=== PATIENT | male | born 1950 | race Caucasian/White ===

== ENCOUNTER → 2017-01-07 | Outpatient (REF) | payer MEDICARE, OTHER ==
[~2017-01-07] MED LIST: ASPI81TA85 PO; ATEN50TA9 PO; ATOR40TA PO; CENTTAB PO; COQ-400C PO; FOLI1TAB2 PO; GLIM2TAB PO; LISI-542 PO; NASA1SPR; NEUR800T PO; VIAG100T PO; VITATAB73 PO; [UNRECOGNIZED DRUG - OTHER]
[2017-01-07 18:14] LABS: FERRITIN 140 NG/ML (26-388); PERCENT SATURATION 29.9 % (19.7-37.4); TOTAL IRON BINDING CAPACITY 368 UG/DL (250-450)
[2017-01-07 18:18] LABS: FOLATE > 24.0 NG/ML; VITAMIN B12 LEVEL 564 PG/ML
== END ==
LOC: M LAB REF 16:31
PROVIDERS: ATTEND Internal Medicine Nephrology
DX: D64.9 Anemia, unspecified (principal)

== ENCOUNTER → 2017-05-15 | Outpatient (REF) | payer MEDICARE, OTHER ==
[~2017-05-15] MED LIST changes: -ATOR40TA PO; +ATOR40TA75 PO; -FOLI1TAB2 PO; +FOLI1TAB4 PO
[2017-05-15 13:44] LABS: ALBUMIN 3.7 GM/DL (3.2-5.2); ALBUMIN/GLOBULIN RATIO 1.09 (1.00-1.93); BILIRUBIN,TOTAL 0.6 MG/DL (0.2-1.0); CALCIUM LEVEL 9.3 MG/DL (8.8-10.2); CREATININE FOR GFR 1.36 MG/DL (0.70-1.30); GLOMERULAR FILTRATION RATE 55.5 (>49); POTASSIUM SERUM 4.6 MEQ/L (3.5-5.1); TOTAL PROTEIN 7.1 GM/DL (6.4-8.2)
== END ==
LOC: M SFHCCLAY 08:57
PROVIDERS: ATTEND Family Medicine
DX: E11.21 Type 2 diabetes mellitus with diabetic nephropathy (principal)

== ENCOUNTER → 2018-05-06 | Outpatient (REF) | payer MEDICARE, OTHER | LOC: M SFHCCLAY 14:26 | DX: I10 Essential (primary) hypertension (principal); E11.21 Type 2 diabetes mellitus with diabetic nephropathy; E78.5 Hyperlipidemia, unspecified; Z53.8 Procedure and treatment not carried out for other reasons ==

== ENCOUNTER → 2018-05-07 | Outpatient (REF) | payer MEDICARE, OTHER ==
[2018-05-07 12:49] LABS: ESTIMATED AVERAGE GLUCOSE 120 MG/DL (60-110); HEMOGLOBIN A1c 5.8 %; MALB URINE SIEMENS 6.7 MG/L
[2018-05-07 13:09] LABS: MAU/CREAT RATIO 5.6 MCG/MG (0.0-30.0)
[2018-05-07 13:16] LABS: ALBUMIN 3.6 GM/DL (3.2-5.2); ALBUMIN/GLOBULIN RATIO 1.06 (1.00-1.93); ALKALINE PHOSPHATASE 60 U/L (45-117); ALT/SGPT 30 U/L (12-78); ANION GAP 11 MEQ/L (8-16); AST/SGOT 33 U/L (7-37); BILIRUBIN,TOTAL 0.8 MG/DL (0.2-1.0); BLOOD UREA NITROGEN 17 MG/DL (7-18); CALCIUM LEVEL 8.5 MG/DL (8.8-10.2); CARBON DIOXIDE LEVEL 24 MEQ/L (21-32); CHLORIDE LEVEL 105 MEQ/L (98-107); CHOLESTEROL LEVEL 118 MG/DL (<200); CHOLESTEROL RISK RATIO 3.277 (<5); CREATININE FOR GFR 1.44 MG/DL (0.70-1.30); GLOMERULAR FILTRATION RATE 51.8 (>49); GLUCOSE, FASTING 99 MG/DL (70-100); HDL CHOLESTEROL 36 MG/DL (>40); LDL CHOLESTEROL 50 MG/DL (<100); NON-HDL-C 82 MG/DL; POTASSIUM SERUM 4.2 MEQ/L (3.5-5.1); SODIUM LEVEL 140 MEQ/L (136-145); TRIGLYCERIDES LEVEL 162 MG/DL (<150)
== END ==
LOC: M SFHCCLAY 09:14
DX: I10 Essential (primary) hypertension (principal); E11.21 Type 2 diabetes mellitus with diabetic nephropathy; E78.5 Hyperlipidemia, unspecified
CPT/HCPCS: 80053

== ENCOUNTER → 2019-01-14 | Outpatient (REF) | payer MEDICARE, OTHER ==
[~2019-01-14] MED LIST changes: +FOLI1TAB11 PO; -FOLI1TAB4 PO
[2019-01-14 18:17] LABS: FERRITIN 252 NG/ML (26-388); IRON (FE) 136 UG/DL (65-175); PERCENT SATURATION 43.7 % (19.7-50.0); TOTAL IRON BINDING CAPACITY 311 UG/DL (250-450)
[2019-01-14 18:20] LABS: VITAMIN B12 LEVEL 1260 PG/ML
[2019-01-14 18:21] LABS: FOLATE > 24.0 NG/ML
[2019-01-18 00:08] LABS: Methylmalonic Acid 133 nmol/L (0-378)
== END ==
LOC: M LAB REF 17:07
PROVIDERS: ATTEND Internal Medicine Nephrology
DX: D64.9 Anemia, unspecified (principal)

== ENCOUNTER → 2019-05-01 | Outpatient (REF) | payer MEDICARE, OTHER ==
[2019-05-01 12:30] LABS: HEMOGLOBIN A1c 5.5 %
[2019-05-01 12:34] LABS: ALBUMIN 3.6 GM/DL (3.2-5.2); BILIRUBIN,TOTAL 0.6 MG/DL (0.2-1.0); CHOLESTEROL RISK RATIO 2.731 (<5); CREATININE FOR GFR 1.75 MG/DL (0.70-1.30); GLOMERULAR FILTRATION RATE 41.2 (>42); POTASSIUM SERUM 3.9 MEQ/L (3.5-5.1)
== END ==
LOC: M SFHCCLAY 08:31
PROVIDERS: ATTEND Family Medicine
DX: E11.21 Type 2 diabetes mellitus with diabetic nephropathy (principal)

== ENCOUNTER → 2020-03-24 | Outpatient (REF) | payer MEDICARE, OTHER ==
[~2020-03-24] MED LIST changes: -ASPI81TA85 PO; +ASPI81TA86 PO; -GLIM2TAB PO; +GLIM2TAB4 PO
[2020-03-24 15:07] LABS: HEMATOCRIT 33.6 % (42.0-52.0); HEMOGLOBIN 11.3 g/dl (13.5-17.5); MEAN CORPUSCULAR HEMOGLOBIN 35.9 pg (27.0-33.0); MEAN CORPUSCULAR HGB CONC 33.6 g/dl (32.0-36.5); MEAN CORPUSCULAR VOLUME 106.7 fl (80.0-96.0); PLATELET COUNT, AUTOMATED 175 10^3/uL (150-450); RED BLOOD COUNT 3.15 10^6/uL (4.30-6.10); WHITE BLOOD COUNT 4.9 10^3/uL (4.0-10.0)
[2020-03-24 15:53] LABS: ALBUMIN 3.5 GM/DL (3.2-5.2); ALT/SGPT 26 U/L (12-78); BILIRUBIN,TOTAL 0.6 MG/DL (0.2-1.0); BLOOD UREA NITROGEN 21 MG/DL (7-18); CALCIUM LEVEL 9.1 MG/DL (8.8-10.2); CARBON DIOXIDE LEVEL 27 MEQ/L (21-32); CHLORIDE LEVEL 106 MEQ/L (98-107); CREATININE FOR GFR 1.26 MG/DL (0.70-1.30); FOLATE > 24.0 NG/ML; GLOMERULAR FILTRATION RATE > 60.0 (>42); GLUCOSE, FASTING 110 MG/DL (70-100); POTASSIUM SERUM 4.1 MEQ/L (3.5-5.1); SODIUM LEVEL 140 MEQ/L (136-145); TOTAL PROTEIN 6.7 GM/DL (6.4-8.2); VITAMIN B12 LEVEL 1621 PG/ML
== END ==
LOC: M LABDRAWC 13:16
PROVIDERS: ATTEND Family Medicine
DX: D50.9 Iron deficiency anemia, unspecified (principal)

== ENCOUNTER → 2020-12-21 | Outpatient (REF) | payer MEDICARE, OTHER ==
[~2020-12-21] MED LIST changes: -LISI-542 PO; +LISI-898 PO
[2020-12-21 12:18] LABS: PERCENT SATURATION 38.8 % (19.7-50.0)
== END ==
LOC: M SFHCCLAY 09:24
PROVIDERS: ATTEND Family Medicine
DX: D53.9 Nutritional anemia, unspecified (principal); D69.6 Thrombocytopenia, unspecified
CPT/HCPCS: 83010; 83550; 83615; 85046; G0463

== ENCOUNTER → 2020-12-28 | Outpatient (REF) | payer MEDICARE, OTHER ==
[2020-12-28 13:17] LABS: FOLATE > 24.0 NG/ML (>5.4); VITAMIN B12 LEVEL 1638 PG/ML (247-911)
[2020-12-28 19:24] LABS: REDUCING SUBSTANCE NEGATIVE (NEGATIVE)
== END ==
LOC: M SFHCCLAY 09:10
PROVIDERS: ATTEND Family Medicine
DX: D53.9 Nutritional anemia, unspecified (principal); R19.7 Diarrhea, unspecified

== ENCOUNTER → 2021-01-05 | Outpatient (REF) | payer MEDICARE, OTHER ==
[2021-01-05 21:05] LABS: FOLATE > 24.0 NG/ML; VITAMIN B12 LEVEL 1528 PG/ML
== END ==
LOC: M LAB REF 16:38
PROVIDERS: ATTEND Nurse Practitioner Family
DX: D64.9 Anemia, unspecified (principal)

== ENCOUNTER → 2021-02-10 | Outpatient (CLI) | payer MEDICARE, OTHER ==
[~2021-02-10] MED LIST changes: +ATEN25TA PO; +DIPH12.529 PO; +DIPH25CA32 PO; +FLON1SPR NARES; +K-TA10TA2 PO; +MELA10SU3 SL; +MULTTAB61 PO; +QC A650T3 PO; +RA T500C2 PO
--- NOTE | 2021-02-10 08:35 | REP ---
INDICATION: ANEMIA COMPARISON: None. TECHNIQUE: Real time butler scale ultrasound examination using curved array transducer. FINDINGS: Liver is increased in echotexture with poor through transmission suggesting fatty infiltration. No obvious focal hepatic lesion identified. Pancreas is normal in echotexture and appearance. The gallbladder is normal and without gallstones, wall thickening, or pericholecystic fluid. No biliary ductal dilatation is appreciated and the common bile duct measures 4.2 mm diameter. Right kidney is mildly atrophic and appears echogenic with increased central sinus fat and renovascular calcifications suggesting age-related renal disease. Small nonobstructing intrarenal calculi cannot be excluded. Kidney measures 9.0 x 5.3 x 5.7 cm. No ascites in the visualized right upper quadrant. IMPRESSION: 1. Hepatosteatosis. 2. Age-related medical renal disease. Small nonobstructing intrarenal calculi cannot be excluded. No hydronephrosis. <Electronically signed by Keith Jha > 02/10/21 [id number]
== END ==
LOC: M RAD 06:31
PROVIDERS: ATTEND Physician Assistant Medical
DX: D64.9 Anemia, unspecified (principal)

== ENCOUNTER → 2021-02-24 | Outpatient (CLI) | payer MEDICARE, OTHER ==
[~2021-02-24] MED LIST changes: +MELA10SU3 PO; -MELA10SU3 SL; -[UNRECOGNIZED DRUG - OTHER]; +[UNRECOGNIZED DRUG - OTHER] PO
== END ==
LOC: M LABSMTC 11:11
PROVIDERS: ATTEND Anesthesiology
DX: Z01.812 Encounter for preprocedural laboratory examination (principal); Z20.822 Contact with and (suspected) exposure to COVID-19

== ENCOUNTER 2021-03-01 08:20 | Day surgery (SDC) | payer MEDICARE, OTHER ==
[~2021-03-01] VITALS: Ht 175.3 cm; Wt 94.8 kg
[~2021-03-01 08:20] MED LIST changes: +NS 1,000 ML IV ONE; +fentaNYL 100 MCG/2 ML INJECTION (J3010) As Ordered ONE; +propofoL 500 MG/50 ML VIAL As Ordered ONE
[2021-03-01] MEDS ORDERED: crill oil PO (08:39)
[2021-03-01] MEDS ORDERED: LIDOCAINE 2% 100MG/5ML SDV (FOR ANES.) As Ordered ONE (09:24)
--- NOTE | 2021-03-01 10:16 | ROOR ---
Patient Name: Jayden Phelps Procedure Date: 03/01/2021 9:58 AM Date of : 1950 Age: 70 Room: [facility] Gender: Male Note Status: Finalized Procedure: Upper GI endoscopy Indications: Anemia, Heartburn Providers: Andrew Pham MD Referring MD: Orestes Torres MD Requesting Provider: Medicines: Monitored Anesthesia Care Complications: No immediate complications. Procedure: Pre-Anesthesia Assessment: - The heart rate, respiratory rate, oxygen saturations, blood pressure, adequacy of pulmonary ventilation, and response to care were monitored throughout the procedure. The Endoscope was introduced through the mouth, and advanced to the second part of duodenum. The upper GI endoscopy was accomplished without difficulty. The patient tolerated the procedure well. Findings: The Z-line was variable and was found 39 cm from the incisors. This was biopsied with a cold forceps for histology. The exam of the esophagus was otherwise normal. The entire examined stomach was normal. The examined duodenum was normal. Impression: - Z-line variable, 39 cm from the incisors. Biopsied. - Normal stomach. - Normal examined duodenum. Recommendation: - Await pathology results. - Telephone endoscopist for pathology results in 2 weeks. Procedure Code(s): --- Professional --- 56167, Esophagogastroduodenoscopy, flexible, transoral; with biopsy, single or multiple Diagnosis Code(s): --- Professional --- R12, Heartburn D50.9, Iron deficiency anemia, unspecified K22.8, Other specified diseases of esophagus CPT copyright 2019 [employer]. All rights reserved. The codes documented in this report are preliminary and upon wafer fab operator review may be revised to meet current compliance requirements. Andrew Pham MD Andrew Pham MD 03/01/2021 10:15:52 AM Electronically signed by Andrew Pham MD Number of Addenda: 0 Note Initiated On: 03/01/2021 9:58 AM Estimated Blood Loss: Estimated blood loss: none.
[2021-03-01] MEDS ORDERED: ePHEDrine SULFATE 25 MG/5 ML(5MG/ML) SYRINGE As Ordered ONE (10:26)
--- NOTE | 2021-03-01 10:33 | ROOR ---
Patient Name: Jayden Phelps Procedure Date: 03/01/2021 9:59 AM Date of : 1950 Age: 70 Room: [facility] Gender: Male Note Status: Finalized Procedure: Colonoscopy Indications: High risk colon cancer surveillance: Personal history of colonic polyps, Incidental - Macrocytic anemia Providers: Andrew Pham MD Referring MD: Orestes Torres MD Requesting Provider: Medicines: Monitored Anesthesia Care Complications: No immediate complications. Procedure: Pre-Anesthesia Assessment: - The heart rate, respiratory rate, oxygen saturations, blood pressure, adequacy of pulmonary ventilation, and response to care were monitored throughout the procedure. The Colonoscope was introduced through the anus and advanced to the terminal ileum, with identification of the appendiceal orifice and IC valve. The colonoscopy was performed without difficulty. The patient tolerated the procedure well. The quality of the bowel preparation was good. Findings: The perianal and digital rectal examinations were normal. A diminutive polyp was found in the sigmoid colon. The polyp was sessile. The polyp was removed with a cold snare. Resection and retrieval were complete. Internal hemorrhoids were found during retroflexion. The hemorrhoids were medium-sized. A few small-mouthed diverticula were found in the sigmoid colon. The exam was otherwise without abnormality on direct and retroflexion views. Impression: - One diminutive polyp in the sigmoid colon, removed with a cold snare. Resected and retrieved. - Moderate Internal hemorrhoids. - Mild sigmoid diverticulosis. - The examination was otherwise normal on direct and retroflexion views. Recommendation: - Telephone endoscopist for pathology results in 2 weeks. - If the pathology report reveals adenomatous tissue, then repeat the colonoscopy for surveillance in 5 years. Procedure Code(s): --- Professional --- 68237, Colonoscopy, flexible; with removal of tumor(s), polyp(s), or other lesion(s) by snare technique Diagnosis Code(s): --- Professional --- K57.30, Diverticulosis of large intestine without perforation or abscess without bleeding K64.8, Other hemorrhoids K63.5, Polyp of colon Z86.010, Personal history of colonic polyps CPT copyright 2019 [employer]. All rights reserved. The codes documented in this report are preliminary and upon base loader review may be revised to meet current compliance requirements. Andrew Pham MD Andrew Pham MD 03/01/2021 10:32:58 AM Electronically signed by Andrew Pham MD Number of Addenda: 0 Note Initiated On: 03/01/2021 9:59 AM Estimated Blood Loss: Estimated blood loss: none.
[2021-03-01 10:55] VITALS: BP 156/89
== END 2021-03-01 11:08 | disposition home or self-care (01) ==
LOC: M OPP 08:20
PROVIDERS: ATTEND Internal Medicine Gastroenterology
DX: K63.5 Polyp of colon (principal); Z86.010 Personal history of colon polyps; K57.30 Diverticulosis of large intestine without perforation or abscess without bleeding; K64.8 Other hemorrhoids; D50.9 Iron deficiency anemia, unspecified; K22.8 Other specified diseases of esophagus; R12 Heartburn; Z79.899 Other long term (current) drug therapy; Z87.891 Personal history of nicotine dependence
CPT/HCPCS: 43239; 45385; 88305; J3010

== ENCOUNTER 2021-04-16 13:39 | Inpatient (IN) | payer MEDICARE, OTHER ==
[~2021-04-16] VITALS: Ht 175.3 cm; Wt 95.2 kg
[~2021-04-16 13:39] MED LIST changes: -NS 1,000 ML IV ONE; +crill oil PO; -fentaNYL 100 MCG/2 ML INJECTION (J3010) As Ordered ONE; -propofoL 500 MG/50 ML VIAL As Ordered ONE
[2021-04-16 14:41] LABS: RSV AMPLIFICATION NEGATIVE (NEGATIVE)
[2021-04-16] MEDS ORDERED: IBUPROFEN 600MG TAB PO ONE (15:40)
--- NOTE | 2021-04-16 15:56 | REP ---
INDICATION: covid positive cough. COMPARISON: None. TECHNIQUE: Single portable AP view of the chest was performed. FINDINGS: There is no acute infiltrate or pulmonary edema. Lungs are clear. The heart is not significantly enlarged. The mediastinal silhouette is unremarkable. The visualized osseous structures are intact. The right hemidiaphragm is mildly elevated. Air projects beneath the right hemidiaphragm which may represent a loop of colon but free intraperitoneal air cannot totally be excluded. IMPRESSION: No acute pulmonary disease. Air projects beneath the right hemidiaphragm which may represent a loop of colon but free intraperitoneal air cannot totally be excluded. Critical Findings: Loop of colon versus free air beneath the right diaphragm. CT recommended. The critical information above was relayed directly by me by telephone to HANK MARTINEZ on 04/16/2021 at 3:52 pm with readback verification. <Electronically signed by Arsen Lorenzo > 04/16/21 [id number]
[2021-04-16] MEDS ORDERED: RA M10TA PO (16:10)
[2021-04-16] MEDS ORDERED: GABA-283 PO (16:10)
[2021-04-16] MEDS ORDERED: DIPH25CA32 PO (16:10)
[2021-04-16] MEDS ORDERED: LISI2.5T9 PO (16:10)
[2021-04-16] MEDS ORDERED: TURM500C5 PO (16:10)
[2021-04-16] MEDS ORDERED: GABA600T4 PO (16:10)
[2021-04-16] MEDS ORDERED: KRIL1CAP7 PO (16:10)
[2021-04-16] MEDS ORDERED: SUDO4TAB PO (16:10)
[2021-04-16] MEDS ORDERED: HOME MED LIST COMPLETE! XX SCH (16:15)
[2021-04-16 16:44] LABS: BASO % 0.8 % (0.0-1.0); EOS # 0.2 10^3/uL (0.0-0.5); EOS % 6.4 % (0.0-3.0); HEMATOCRIT 35.2 % (42.0-52.0); HEMOGLOBIN 11.7 g/dl (13.5-17.5); LYMPH # 0.4 10^3/uL (1.5-5.0); LYMPH % 17.8 % (24.0-44.0); MEAN CORPUSCULAR HEMOGLOBIN 36.2 pg (27.0-33.0); MEAN CORPUSCULAR HGB CONC 33.2 g/dl (32.0-36.5); MONO # 0.4 10^3/uL (0.0-0.8); MONO % 18.2 % (2.0-8.0); NEUTROPHILS # 1.3 10^3/uL (1.5-8.5); NEUTROPHILS % 56.4 % (36.0-66.0); RED BLOOD COUNT 3.23 10^6/uL (4.30-6.10); WHITE BLOOD COUNT 2.4 10^3/uL (4.0-10.0)
[2021-04-16 17:04] LABS: INR 1.09; PROTHROMBIN TIME 14.5 SECONDS (12.7-14.5)
[2021-04-16 17:05] LABS: PARTIAL THROMBOPLASTIN TIME 31.8 SECONDS (25.9-37.0)
[2021-04-16 17:07] LABS: D-DIMER QUANT 1190.66 ng/ml (<500)
[2021-04-16 17:10] LABS: C REACTIVE PROTEIN QUANTITATIV 7.24 MG/DL (0.00-0.30); MAGNESIUM LEVEL 1.7 MG/DL (1.8-2.4)
[2021-04-16 17:16] LABS: CREATININE FOR GFR 1.39 MG/DL (0.70-1.30)
[2021-04-16 17:17] LABS: ALBUMIN 3.5 GM/DL (3.2-5.2); BILIRUBIN,DIRECT 0.4 MG/DL (0.0-0.2); BILIRUBIN,TOTAL 0.9 MG/DL (0.2-1.0); CALCIUM LEVEL 8.4 MG/DL (8.8-10.2); CK-MB VALUE MASS 2.5 NG/ML (<3.6); FREE T4 1.11 NG/DL (0.76-1.46); GLOMERULAR FILTRATION RATE 53.5 (>42); MB/CK RELATIVE INDEX 1.11 (< OR =4); POTASSIUM SERUM 4.1 MEQ/L (3.5-5.1); THYROID STIMULATING HORMONE 0.886 uIU/ML (0.358-3.740); TOTAL PROTEIN 6.9 GM/DL (6.4-8.2); TROPONIN I 0.03 NG/ML (< 0.10)
[2021-04-16 17:19] LABS: PLATELET COUNT, AUTOMATED 89 10^3/uL (150-450)
--- NOTE | 2021-04-16 17:34 | REP ---
INDICATION: abd pain earlier now resolved COMPARISON: Chest radiograph today. TECHNIQUE: CT Scan of the abdomen and pelvis was performed without intravenous contrast. Sagittal and coronal reconstruction images performed. FINDINGS: Lung bases: There is elevation of the right hemidiaphragm with fibro atelectatic changes in the right lower lobe. There is a loop of colon beneath the right diaphragm. Liver: Grossly unremarkable. Gallbladder: Unremarkable. Spleen: Grossly unremarkable. Adrenals: Normal. Pancreas: Grossly unremarkable.. Kidneys: No hydronephrosis or nephrolithiasis. Ureters demonstrate no dilatation or calculus. There is a 4.3 cm left renal cyst. Small and large bowel: There is colonic diverticulosis without acute diverticulitis. Free fluid: None. Abdominal aorta: No aneurysm. Adenopathy: None. Appendix: Not inflamed. Osseous structures: There are degenerative changes of the spine without compression deformity. There is fusion of the L3 and L4 vertebral bodies, the L 3 vertebral body demonstrates slight anterolisthesis on L4.. Pelvis: No mass. No bladder calculus seen. IMPRESSION: No evidence of free intraperitoneal air. A loop of colon is seen beneath the right diaphragm. No acute abnormalities are seen. <Electronically signed by Arsen Lorenzo > 04/16/21 [id number]
[2021-04-16] MEDS ORDERED: diphenhydrAMINE 25MG CAP PO PRN (18:10)
[2021-04-16] MEDS ORDERED: ACETAMINOPHEN 650MG ER TAB (TYLENOL ARTHRITIS) PO PRN (18:10)
[2021-04-16] MEDS ORDERED: FLUTICASONE PROP 0.05% NASAL SPRAY 16 GM (FLONASE) NARES PRN (18:10)
[2021-04-16] MEDS ORDERED: LORazepam 2 MG TAB PO PRN (18:50)
--- NOTE | 2021-04-16 18:50 | HPEPDOC ---
General Date of Admission Apr 16, 2021 at 18:07 Date of Service: Apr 16, 2021 Chief Complaint The patient is a 70-year-old male admitted with a reason for visit of Covid-19. Source: Patient History of Present Illness Patient 71 years old male with past medical history of EtOH abuse, hypertension, macrocytic anemia, type 2 diabetes, hyperlipidemia, arthritis presented to [facility] with increased shortness of breath. Patient stated that for past few days he has been having increased shortness of breath. Also he reported intermittent cough without sputum production and low-grade fever. Also patient for a few days he has been having diarrhea for up to 4 bowel movements in a day In ER patient was tested positive for COVID-19. Of note patient was fully vaccinated with Moderna in September. Patient was found to have fever of 100.3, his oxygen requirements increased during ambulation, but he has 94% of oxygen saturation on the room air. White blood count 2.4, hemoglobin 11.7, platelet count of 89. X-ray negative for acute pulmonary disease Home Medications Scheduled Atenolol (Atenolol) 25 Mg Tablet, 25 MG PO DAILY, (Reported) Atorvastatin Calcium (Atorvastatin Calcium) 40 Mg Tab, 40 MG PO QHS, (Reported) Gabapentin (Gabapentin) 600 Mg Tablet, 600 MG PO TID, (Reported) Gabapentin (Gabapentin) 400 Mg Capsule, 400 MG PO TID, (Reported) Krill/Om-3/Dha/Epa/Phospho/Ast (Krill Oil 1,000 mg Softgel) 1 Each Capsule, 1 CAP PO DAILY, (Reported) Lisinopril (Lisinopril) 2.5 Mg Tablet, 2.5 MG PO DAILY, (Reported) Melatonin (Melatonin) 10 Mg Tablet, 10 MG PO QHS, (Reported) Multivitamin (Multivitamins) 1 Each Tablet, 1 TAB PO DAILY, (Reported) @ 1600 Potassium Chloride (K-Tab ER) 10 Meq Tablet.er, 10 MEQ PO DAILY, (Reported) Turmeric Root Extract (Turmeric) 538 Mg Capsule, 538 MG PO TID, (Reported) Scheduled PRN Acetaminophen (Acetaminophen 8 Hour) 650 Mg Tablet.er, 650 MG PO Q8H PRN for PAIN LEVEL 1-4, (Reported) Chlorpheniramine/Pseudoephed (Sudogest Cold and Allergy Tab) 1 Each Tablet, 1 TAB PO BID PRN for CONGESTION, (Reported) Diphenhydramine HCl (Diphenhydramine HCl) 25 Mg Capsule, 25 MG PO QHS PRN for SLEEP, (Reported) Fluticasone Propionate (Flonase Allergy Relief) 9.9 Ml [place].susp, 2 SPRAY NARES DAILY PRN for NASAL CONGESTION, (Reported) Allergies Coded Allergies: ENVIRONMENTAL (Verified Allergy, Unknown, 04/16/21) Past Medical History Medical History HYPERTENSION HYPERLIPIDEMIA ARTHRITIS IMPAIRED FASTING GLUCOSE GENERALIZED OSTEOARTHROSIS, INVOLVING HAND NEED FOR PROPHYLACTIC VACCINATION AND INOCULATION, INFLUENZA UNSPECIFIED ESSENTIAL HYPERTENSION DM TYPE 2 CHRONIC KIDNEY DISEASE, STAGE 3, MOD DECREASED GFR NEUROPATHY CERVICAL STENOSIS, S/P DECOMPRESSIVE LAMINECTOMY AND FUSION C4-6, AUGUST 2015, [place] Surgical History LAMINECTOMY 1985 LEFT HAND CARPAL TUNNEL NCOG 03/04/2014 LEFT TOTAL KNEE REPLACEMENT 09/21/2014 FUSION C4,5&6 DR.ASHWINI JOSE 09/01/2015 EYELIDS 2016 Family History FATHER: 87 YRS, CARDIAC DISEASE MOTHER: 87 YRS, DEMENTIA SIBLINGS: ALIVE 1 BROTHER(S) , 1 SISTER(S) - HEALTHY. SISTER HAS BACK PROBLEMS. Social History * Smoker: former Smoker Alcohol: heavy Drugs: denies A-FIB/CHADSVASC A-FIB History Current/History of A-Fib/PAF?: No Current PO Anticoag Therapy: No Review of Systems Constitutional: Reports: Fever Eyes: Denies: Pain ENT: Denies: Head Aches Skin: Denies: Rash, Lesions Pulmonary: Reports: Dyspnea, Cough Cardiovascular: Denies: Chest Pain Gastrointestinal: Reports: Diarrhea Genitourinary: Denies: Dysuria Hematologic: Denies: Bruising Endocrine: Denies: Polydipsia Musculoskeletal: Denies: Neck Pain Neurological: Denies: Weakness Psych: Reports: Mood Normal Physical Examination General Exam: Positive: Alert, Cooperative Eye Exam: Positive: PERRLA ENT Exam: Positive: Atraumatic Neck Exam: Positive: Supple; Negative: JVD Chest Exam: Negative: Clear to auscultation Heart Exam: Positive: Rate Normal Telemetry: Positive: No significant arrhythmia Extremity Exam: Negative: Clubbing Skin Exam: Negative: Rash Neuro Exam: Positive: Strength at 5/5 X4 ext Psych Exam: Positive: Mental status NL Vital Signs Vital Signs Date Time Temp Pulse Resp B/P (MAP) Pulse Ox O2 Delivery O2 Flow Rate FiO2 04/16/21 13:40 100.3 86 18 145/73 (97) 94 Room Air Laboratory Data Labs 24H Laboratory Tests 2 04/16/21 13:56: Coronavirus (COVID-19)(PCR) POSITIVEA, Influenza Type A (RT-PCR) NEGATIVE, Influenza Type B (RT-PCR) NEGATIVE, Respiratory Syncytial Virus (PCR) NEGATIVE 04/16/21 15:36: Immature Granulocyte % (Auto) 0.4, Neutrophils (%) (Auto) 56.4, Lymphocytes (%) (Auto) 17.8L, Monocytes (%) (Auto) 18.2H, Eosinophils (%) (Auto) 6.4H, Basophils (%) (Auto) 0.8, Neutrophils # (Auto) 1.3L, Lymphocytes # (Auto) 0.4L, Monocytes # (Auto) 0.4, Eosinophils # (Auto) 0.2, Basophils # (Auto) 0.0, Nucleated Red Blood Cells % (auto) 0.0, Immature Platelet Fraction 4.0, Prothrombin Time 14.5H, Prothromb Time International Ratio 1.09, Activated Partial Thromboplast Time 31.8, Fibrinogen 539H, D-Dimer, Quantitative 1190.66H, Anion Gap 9, Glomerular Filtration Rate 53.5, Lactic Acid Level 1.2, Calcium Level 8.4L, Magnesium Level 1.7L, Ferritin 806H, Total Bilirubin 0.9, Direct Bilirubin 0.4H, Aspartate Amino Transf (AST/SGOT) 64H, Alanine Aminotransferase (ALT/SGPT) 38, Alkaline Phosphatase 69, Lactate Dehydrogenase 243H, Total Creatine Kinase 225, Creatine Kinase MB 2.5, Creatine Kinase MB Relative Index 1.11, Troponin I 0.03, C-Reactive Protein, Quantitative 7.24H, Total Protein 6.9, Albumin 3.5, Albumin/Globulin Ratio 1.0, Procalcitonin <0.05, Thyroid Stimulating Hormone (TSH) 0.886, Free Thyroxine 1.11 CBC/BMP Laboratory Tests 04/16/21 15:36 Microbiology Microbiology 04/16/21 Blood Culture, Received Pending 04/16/21 Blood Culture, Received Pending Assessment/Plan Patient 71 years old male with past medical history of EtOH abuse, hypertension, macrocytic anemia, type 2 diabetes, hyperlipidemia, arthritis presented to [facility] with increased shortness of breath. Patient stated that for past few days he has been having increased shortness of breath. Also he reported intermittent cough without sputum production and low-grade fever. Also patient for a few days he has been having diarrhea for up to 4 bowel movements in a day In ER patient was tested positive for COVID-19. Of note patient was fully vaccinated with Moderna in September. Patient was found to have fever of 100.3, his oxygen requirements increased during ambulation, but he has 94% of oxygen saturation on the room air. White blood count 2.4, hemoglobin 11.7, platelet count of 89. X-ray negative for acute pulmonary disease Problems (1) COVID-19 Status: Acute Problem Text: Labs according to Covid protocol Patient has elevated D-dimer unlikely patient has PE, low probability in [place] criteria. Patient does not have tachycardia, he had normal blood pressure, not hypoxic on the room air, no DVT signs, no chest pain Remdesivir IV, dexamethasone IV Encouraged for a prone position (2) Hypertension Status: Chronic Problem Text: Continue home meds (3) Hyperlipidemia Status: Chronic Problem Text: Continues statin (4) Type 2 diabetes mellitus Status: Chronic Problem Text: Diabetes diet Dietary control (5) ETOH abuse Status: Chronic Problem Text: CIWA (6) Macrocytic anemia Status: Chronic Problem Text: Lodging Manager follows the patient Most likely secondary to EtOH abuse To rule out MDS hematology team planned to proceed with bone marrow biopsy in the outpatient settings Plan / VTE VTE Prophylaxis Ordered?: Yes LUZ MARINA FARRELL DO Apr 16, 2021 18:50
[2021-04-16] MEDS: THIAMINE 100 MG TAB PO SCH (19:42)
[2021-04-16] MEDS ORDERED: dexameTHASONE 4 MG/ML 1ML VIAL (J1100 PER 1MG) IV SCH (21:00)
[2021-04-16] MEDS ORDERED: REMDESIVIR 200 MG in NS 250 ML IV ONE (23:00)
[2021-04-16 23:08] VITALS: BP 112/75
[2021-04-16] MEDS: GABAPENTIN 300 MG CAP PO SCH (23:28)
[2021-04-16] MEDS: GABAPENTIN 400MG CAP PO SCH (23:28)
[2021-04-16] MEDS: ENOXAPARIN 40MG/0.4ML SYRINGE (J1650 PER 10MG) SC SCH (23:29)
[2021-04-17] VITALS (8 sets, daily range): BP systolic 112–129; BP diastolic 64–90; O2SAT 94–98
[2021-04-17 00:01] LABS: ABG BASE EXCESS 1.6 (-2.0-2.0); ABG HCO3 25.4 MEQ/L (22.0-26.0); ABG O2 SATURATION 93.3 % (95.0-99.0); ABG PARTIAL PRESSURE O2 68.2 mmHg (75.0-100.0); ABG STANDARD HCO3 25.8 MEQ/L (22.0-26.0); ABG TOTAL CO2 26.5 MEQ/L (23.0-31.0); ABG pH (ARTERIAL) 7.454 UNITS (7.350-7.450)
[2021-04-17] MEDS ORDERED: SODIUM CHLORIDE 0.9% INJ 10 ML SYR IV ONE (01:00)
--- NOTE | 2021-04-17 06:01 | ECGEPIP ---
[facility] - ED Test Date: 2021-04-16 Pat Name: LARISA SPARKS Department: Room: - Gender: Male Traveling Buyer: Khadra MARTINEZ : 1950 Requested By: HANK Hannah Order Number: [id number] Reading MD: Matt Maldonado Measurements Intervals [place] Rate: 73 P: 25 [place]: 136 QRS: 14 QRSD: 78 T: 11 QT: 362 QTc: 398 Interpretive Statements Sinus rhythm with premature atrial complexes Low voltage QRS Septal infarct , age undetermined Nonspecific ST T wave changes No prior ECG for comparison Electronically Signed on 04-17-2021 6:01:16 EDT by Matt Maldonado
[2021-04-17] MEDS: THIAMINE 100 MG TAB PO SCH (08:25)
[2021-04-17] MEDS: GABAPENTIN 400MG CAP PO SCH (08:26)
[2021-04-17] MEDS: GABAPENTIN 300 MG CAP PO SCH (08:26)
[2021-04-17] MEDS: ENOXAPARIN 40MG/0.4ML SYRINGE (J1650 PER 10MG) SC SCH (08:27)
[2021-04-17 08:32] LABS: HEMATOCRIT 34.3 % (42.0-52.0); HEMOGLOBIN 11.5 g/dl (13.5-17.5); MEAN CORPUSCULAR HEMOGLOBIN 36.7 pg (27.0-33.0); MEAN CORPUSCULAR HGB CONC 33.5 g/dl (32.0-36.5); MEAN CORPUSCULAR VOLUME 109.6 fl (80.0-96.0); RED BLOOD COUNT 3.13 10^6/uL (4.30-6.10); WHITE BLOOD COUNT 1.5 10^3/uL (4.0-10.0)
[2021-04-17 08:41] LABS: PLATELET COUNT, AUTOMATED 87 10^3/uL (150-450)
[2021-04-17 08:54] LABS: ALBUMIN 3.1 GM/DL (3.2-5.2); BILIRUBIN,DIRECT 0.2 MG/DL (0.0-0.2); BILIRUBIN,TOTAL 0.6 MG/DL (0.2-1.0); CALCIUM LEVEL 8.6 MG/DL (8.8-10.2); CREATININE FOR GFR 1.33 MG/DL (0.70-1.30); GLOMERULAR FILTRATION RATE 56.3 (>42); MAGNESIUM LEVEL 1.8 MG/DL (1.8-2.4); POTASSIUM SERUM 4.2 MEQ/L (3.5-5.1); TOTAL PROTEIN 6.9 GM/DL (6.4-8.2)
[2021-04-17] MEDS ORDERED: FLUBLOK(EGG FREE)(QUAD)INFLUENZA VACC 0.5ML SYRINGE 18YRS & OLDER IM ONE (09:00)
[2021-04-17] MEDS ORDERED: MULTIVITAMINS/MINERALS THERAP 1 TAB PO SCH (09:00)
[2021-04-17] MEDS ORDERED: FOLIC ACID 1 MG TAB PO SCH (09:00)
[2021-04-17] MEDS ORDERED: POTASSIUM CHLORIDE 10MEQ SR TABLET PO SCH (09:00)
[2021-04-17] MEDS ORDERED: atenoloL 25 MG TAB PO SCH (09:00)
[2021-04-17] MEDS ORDERED: LISINOPRIL *2.5 MG* TAB PO SCH (09:00)
[2021-04-17 09:18] LABS: LYMPHOCYTES 23 % (16-44); MONOCYTES 3 % (0-5); NEUTROPHILS 70 % (28-66)
[2021-04-17 09:19] LABS: PLATELET ESTIMATE DECREASED (NORMAL)
--- NOTE | 2021-04-17 15:51 | DS.PDOC ---
Discharge Summary General Date of Admission Apr 16, 2021 at 18:07 Date of Discharge 04/17/21 Discharge Summary PROCEDURES PERFORMED DURING STAY: [None]. ADMITTING DIAGNOSES: COVID-19 Hypertension Hyperlipidemia Type 2 diabetes mellitus ETOH abuse Macrocytic anemia DISCHARGE DIAGNOSES: COVID-19 Hypertension Hyperlipidemia Type 2 diabetes mellitus ETOH abuse Macrocytic anemia COMPLICATIONS/CHIEF COMPLAINT: Covid-19. HISTORY OF PRESENT ILLNESS: Patient 71 years old male with past medical history of EtOH abuse, hypertension, macrocytic anemia, type 2 diabetes, hyperlipidemia, arthritis presented to hospital with increased shortness of breath. Patient stated that for past few days he has been having increased shortness of breath. Also he reported intermittent cough without sputum production and low-grade fever. Also patient for a few days he has been having diarrhea for up to 4 bowel movements in a day In ER patient was tested positive for COVID-19. Of note patient was fully vaccinated with Moderna in September. Patient was found to have fever of 100.3, his oxygen requirements increased during ambulation, but he has 94% of oxygen saturation on the room air. White blood count 2.4, hemoglobin 11.7, platelet count of 89. X-ray negative for acute pulmonary disease HOSPITAL COURSE: Today in the morning patient was on room air, during ambulation his oxygenation was 92%. Patient stated that his breathing improved. Patient will be discharged and he will receive monoclonal antibody. DISCHARGE MEDICATIONS: Please see below. ALLERGIES: Please see below. PHYSICAL EXAMINATION ON DISCHARGE: VITAL SIGNS: Please see below. Physical Examination General Exam: Positive: Alert, Cooperative Eye Exam: Positive: PERRLA ENT Exam: Positive: Atraumatic Neck Exam: Positive: Supple; Negative: JVD Chest Exam: Negative: Clear to auscultation Heart Exam: Positive: Rate Normal Telemetry: Positive: No significant arrhythmia Extremity Exam: Negative: Clubbing Skin Exam: Negative: Rash Neuro Exam: Positive: Strength at 5/5 X4 ext Psych Exam: Positive: Mental status NL LABORATORY DATA: Please see below. PROGNOSIS: Fair ACTIVITY: [As tolerated]. DIET: Cardiac DISPOSITION: Home, Self-Care. ITEMS TO FOLLOWUP ON ON OUTPATIENT: Follow-up with PCP DISCHARGE CONDITION: [Stable]. TIME SPENT ON DISCHARGE: 30 minutes. Vital Signs/I&Os Vital Signs Date Time Temp Pulse Resp B/P (MAP) Pulse Ox O2 Delivery O2 Flow Rate FiO2 04/17/21 12:00 96 Room Air 04/17/21 12:00 76 112/73 04/17/21 12:00 99.5 18 04/17/21 06:28 1.0 I&O- Last 24 Hours up to 6 AM 04/17/21 06:00 Intake Total 380 ml Output Total 150 ml Balance 230 ml Laboratory Data Labs 24H Laboratory Tests 2 04/16/21 23:49: Blood Gas Bicarbonate Standard 25.8, Arterial Blood pH 7.454H, Arterial Blood Partial Pressure CO2 37.0, Arterial Blood Partial Pressure O2 68.2L, Arterial Blood Total CO2 26.5, Arterial Blood HCO3 25.4, Arterial Blood Base Excess 1.6, Arterial Blood Oxygen Saturation 93.3L 04/17/21 07:19: Neutrophils (%) (Auto) , Nucleated Red Blood Cells % (auto) 0.0, Neutrophils 70H, Band Neutrophils 4, Lymphocytes (Manual) 23, Monocytes (Manual) 3, Platelet Estimate DECREASED, Anion Gap 7L, Glomerular Filtration Rate 56.3, Calcium Level 8.6L, Magnesium Level 1.8, Total Bilirubin 0.6, Direct Bilirubin 0.2, Aspartate Amino Transf (AST/SGOT) 52H, Alanine Aminotransferase (ALT/SGPT) 36, Alkaline Phosphatase 65, Total Protein 6.9, Albumin 3.1L, Albumin/Globulin Ratio 0.8 CBC/BMP Laboratory Tests 04/17/21 07:19 Microbiology Microbiology 04/16/21 Blood Culture, Received Pending 04/16/21 Blood Culture, Received Pending Discharge Medications Scheduled Atenolol (Atenolol) 25 Mg Tablet, 25 MG PO DAILY, (Reported) Atorvastatin Calcium (Atorvastatin Calcium) 40 Mg Tab, 40 MG PO QHS, (Reported) Gabapentin (Gabapentin) 600 Mg Tablet, 600 MG PO TID, (Reported) Gabapentin (Gabapentin) 400 Mg Capsule, 400 MG PO TID, (Reported) Krill/Om-3/Dha/Epa/Phospho/Ast (Krill Oil 1,000 mg Softgel) 1 Each Capsule, 1 CAP PO DAILY, (Reported) Lisinopril (Lisinopril) 2.5 Mg Tablet, 2.5 MG PO DAILY, (Reported) Melatonin (Melatonin) 10 Mg Tablet, 10 MG PO QHS, (Reported) Multivitamin (Multivitamins) 1 Each Tablet, 1 TAB PO DAILY, (Reported) @ 1600 Potassium Chloride (K-Tab ER) 10 Meq Tablet.er, 10 MEQ PO DAILY, (Reported) Turmeric Root Extract (Turmeric) 538 Mg Capsule, 538 MG PO TID, (Reported) Scheduled PRN Acetaminophen (Acetaminophen 8 Hour) 650 Mg Tablet.er, 650 MG PO Q8H PRN for PAIN LEVEL 1-4, (Reported) Chlorpheniramine/Pseudoephed (Sudogest Cold and Allergy Tab) 1 Each Tablet, 1 TAB PO BID PRN for CONGESTION, (Reported) Diphenhydramine HCl (Diphenhydramine HCl) 25 Mg Capsule, 25 MG PO QHS PRN for SLEEP, (Reported) Fluticasone Propionate (Flonase Allergy Relief) 9.[address] [place].susp, 2 SPRAY NARES DAILY PRN for NASAL CONGESTION, (Reported) Allergies Coded Allergies: ENVIRONMENTAL (Verified Allergy, Unknown, 04/16/21) LUZ MARINA FARRELL DO Apr 17, 2021 15:50
[2021-04-17] MEDS ORDERED: ATORVASTATIN 20 MG TAB PO SCH (21:00)
[2021-04-17] MEDS ORDERED: REMDESIVIR 100 MG in NS 250 ML IV SCH (22:00)
[2021-04-17] MEDS ORDERED: SODIUM CHLORIDE 0.9% INJ 10 ML SYR IV SCH (23:00)
== END 2021-04-17 14:32 | disposition home or self-care (01) | DRG 179 ==
LOC: M ED 13:39 → M ED INP 18:07 → M 4MAIN 22:38
PROVIDERS: ADMIT Internal Medicine; ATTEND Internal Medicine
PROC: XW033E5 Introduction of Remdesivir Anti-infective into Peripheral Vein, Percutaneous Approach, New Technology Group 5 (ICD-10-PCS; principal; 2021-04-16)
PROC: 3E0333Z Introduction of Anti-inflammatory into Peripheral Vein, Percutaneous Approach (ICD-10-PCS; 2021-04-16)
DX: U07.1 COVID-19 (principal); I12.9 Hypertensive chronic kidney disease with stage 1 through stage 4 chronic kidney disease, or unspecified chronic kidney disease; D63.1 Anemia in chronic kidney disease; E11.22 Type 2 diabetes mellitus with diabetic chronic kidney disease; E78.5 Hyperlipidemia, unspecified; M19.90 Unspecified osteoarthritis, unspecified site; F10.10 Alcohol abuse, uncomplicated; Z79.899 Other long term (current) drug therapy; N18.30 Chronic kidney disease, stage 3 unspecified; E11.42 Type 2 diabetes mellitus with diabetic polyneuropathy; M43.22 Fusion of spine, cervical region; Z96.652 Presence of left artificial knee joint; Z87.891 Personal history of nicotine dependence; D53.9 Nutritional anemia, unspecified

== ENCOUNTER 2021-04-17 14:41 | Outpatient (CLI) | payer MEDICARE, OTHER ==
[~2021-04-17] VITALS: Ht 175.3 cm; Wt 95.2 kg
[~2021-04-17 14:41] MED LIST changes: +ACETAMINOPHEN TAB 650MG DOSE (2X325MG) PO PRN; +ALBUTEROL 90 MCG/ACT 8GM HFA INHALER INH PRN; +ALBUTEROL SULFATE 2.5 MG/0.5 ML INH NEB SOLN INH PRN; +EPINEPHrine INJ 1 MG/ML 1ML AMP IM PRN; +GABA-283 PO; +GABA600T4 PO; +KRIL1CAP7 PO; -LISI-898 PO; +LISI2.5T9 PO; +LISI5TAB11 PO; +NS 1,000 ML IV SCH; +RA M10TA PO; +SUDO4TAB PO; +TURM500C5 PO; +diphenhydrAMINE 50MG/ML VIAL (J1200) IV PRN; +methylPREDNISolone 125MG 2ML VIAL IV PRN
[2021-04-17 15:04] VITALS: BP 101/70
[2021-04-17 15:37] VITALS: BP 103/73
[2021-04-17] MEDS ORDERED: CASIRIVIMAB/IMDEVIMAB 1,200 MG in NS 250 ML IV ONE (16:00)
[2021-04-17 16:15] VITALS: BP 120/71
[2021-04-17 17:20] VITALS: BP 106/64
== END 2021-04-17 17:26 | disposition home or self-care (01) ==
LOC: M OPCLI4 14:41 → M 4MAIN 14:42 → M OPCLI4 17:26
PROVIDERS: ATTEND Internal Medicine
DX: U07.1 COVID-19 (principal)

== ENCOUNTER → 2021-05-03 | Outpatient (REF) | payer MEDICARE, OTHER ==
[~2021-05-03] MED LIST changes: -ACETAMINOPHEN TAB 650MG DOSE (2X325MG) PO PRN; -ALBUTEROL 90 MCG/ACT 8GM HFA INHALER INH PRN; -ALBUTEROL SULFATE 2.5 MG/0.5 ML INH NEB SOLN INH PRN; -EPINEPHrine INJ 1 MG/ML 1ML AMP IM PRN; +LISI-898 PO; -LISI5TAB11 PO; -NS 1,000 ML IV SCH; -diphenhydrAMINE 50MG/ML VIAL (J1200) IV PRN; -methylPREDNISolone 125MG 2ML VIAL IV PRN
== END ==
LOC: M LAB REF 13:24
PROVIDERS: ATTEND Nurse Practitioner Family
DX: E83.42 Hypomagnesemia (principal)

== ENCOUNTER → 2022-01-08 | Outpatient (CLI) | payer MEDICARE, OTHER ==
[~2022-01-08] MED LIST changes: +ISOVUE-370 76% 100ML VIAL As Ordered ONE; -LISI-898 PO; +LISI5TAB11 PO
== END ==
LOC: M RAD 09:26
PROVIDERS: ATTEND Otolaryngology
DX: J38.3 Other diseases of vocal cords (principal); I65.22 Occlusion and stenosis of left carotid artery; I70.8 Atherosclerosis of other arteries
CPT/HCPCS: 70491; Q9967

== ENCOUNTER → 2022-01-30 | Outpatient (CLI) | payer MEDICARE, OTHER ==
[~2022-01-30] MED LIST changes: -ISOVUE-370 76% 100ML VIAL As Ordered ONE
== END ==
LOC: M PLAIMG 12:28
PROVIDERS: ATTEND Otolaryngology
DX: J38.3 Other diseases of vocal cords (principal); J98.4 Other disorders of lung

== ENCOUNTER → 2022-03-16 | Outpatient (REF) | payer MEDICARE, OTHER ==
[2022-03-16 18:28] LABS: CREATININE FOR GFR 1.41 MG/DL (0.70-1.30); GLOMERULAR FILTRATION RATE 52.5 (>42)
== END ==
LOC: M LABDRAWC 16:57
PROVIDERS: ATTEND Family Medicine
DX: I73.9 Peripheral vascular disease, unspecified (principal)

== ENCOUNTER → 2022-03-22 | Outpatient (CLI) | payer MEDICARE, OTHER ==
[~2022-03-22] MED LIST changes: +ISOVUE-370 76% 100ML VIAL As Ordered ONE
== END ==
LOC: M RAD 17:26
PROVIDERS: ATTEND Surgery Vascular Surgery
DX: I73.9 Peripheral vascular disease, unspecified (principal)
CPT/HCPCS: 75635; Q9967

== ENCOUNTER → 2022-05-02 | Outpatient (REF) | payer MEDICARE, OTHER ==
[~2022-05-02] MED LIST changes: -ISOVUE-370 76% 100ML VIAL As Ordered ONE
[2022-05-03 18:32] LABS: PERCENT SATURATION 40.1 % (19.7-50.0)
== END ==
LOC: M LAB REF 16:51
PROVIDERS: ATTEND Internal Medicine Nephrology
DX: D64.9 Anemia, unspecified (principal)

== ENCOUNTER → 2023-01-28 | Outpatient (REF) | payer MEDICARE, OTHER ==
[~2023-01-28] MED LIST changes: +DIPH-435 PO; -DIPH25CA32 PO; -K-TA10TA2 PO; +KRIL1CAP PO; -KRIL1CAP7 PO; +POTA-165 PO
[2023-01-28 11:39] LABS: BASO # 0.1 10^3/uL (0.0-0.2); BASO % 1.5 % (0.0-1.0); EOS # 0.4 10^3/uL (0.0-0.5); EOS % 6.8 % (0.0-3.0); HEMATOCRIT 31.2 % (42.0-52.0); HEMOGLOBIN 10.3 g/dl (13.5-17.5); LYMPH # 1.4 10^3/uL (1.5-5.0); LYMPH % 25.7 % (24.0-44.0); MEAN CORPUSCULAR HEMOGLOBIN 36.3 pg (27.0-33.0); MEAN CORPUSCULAR VOLUME 109.9 fl (80.0-96.0); MONO # 0.5 10^3/uL (0.0-0.8); MONO % 8.8 % (2.0-8.0); NEUTROPHILS # 3.1 10^3/uL (1.5-8.5); PLATELET COUNT, AUTOMATED 170 10^3/uL (150-450); RED BLOOD COUNT 2.84 10^6/uL (4.30-6.10); WHITE BLOOD COUNT 5.5 10^3/uL (4.0-10.0)
[2023-01-28 11:46] LABS: ALBUMIN 3.7 G/DL (3.2-5.2); BILIRUBIN,TOTAL 0.5 MG/DL (0.3-1.2); CALCIUM LEVEL 8.9 MG/DL (8.3-10.6); CREATININE FOR GFR 1.44 MG/DL (0.70-1.30); GLOMERULAR FILTRATION RATE 51.1 (>42); HDL CHOLESTEROL 39.3 MG/DL (>40); LDL CHOLESTEROL 52.1 MG/DL (<100); NON-HDL-C 78.7 MG/DL; POTASSIUM SERUM 4.3 MMOL/L (3.5-5.1); TOTAL PROTEIN 6.2 G/DL (5.7-8.2)
[2023-01-28 11:57] LABS: HEMOGLOBIN A1c 5.2 % (4.0-6.0)
== END ==
LOC: M SFHCCLAY 08:45
PROVIDERS: ATTEND Family Medicine
DX: E11.21 Type 2 diabetes mellitus with diabetic nephropathy (principal); D69.6 Thrombocytopenia, unspecified; D53.9 Nutritional anemia, unspecified

== ENCOUNTER 2024-02-20 21:31 | Emergency (ER) | payer MEDICARE, OTHER ==
[~2024-02-20] VITALS: Ht 175.3 cm; Wt 81.8 kg
[~2024-02-20 21:31] MED LIST changes: -GABA-283 PO; +GABA-284 PO
[2024-02-20 21:32] VITALS: BP 141/86; TEMP 98; O2SAT 99
[2024-02-21] MEDS: LIDOCAINE 2% MDV 20ML VIAL SC ONE (00:45)
[2024-02-21] MEDS ORDERED: POLYSPORIN TOPICAL OINTMENT 15GM As Ordered ONE (02:19)
[2024-02-21] MEDS ORDERED: BOOSTRIX VACCINE (TETANUS/DIPHTH/ACEL. PERTUSSIS) 0.5ML SYR As Ordered ONE (02:19)
== END 2024-02-21 13:17 | disposition home or self-care (01) ==
LOC: M ED 21:31
DX: S01.112A Laceration without foreign body of left eyelid and periocular area, initial encounter (principal); W01.198A Fall on same level from slipping, tripping and stumbling with subsequent striking against other object, initial encounter; F10.10 Alcohol abuse, uncomplicated; Y92.009 Unspecified place in unspecified non-institutional (private) residence as the place of occurrence of the external cause; Y93.89 Activity, other specified; Y99.9 Unspecified external cause status; Z79.02 Long term (current) use of antithrombotics/antiplatelets; Z79.811 Long term (current) use of aromatase inhibitors; Z79.899 Other long term (current) drug therapy